=== PATIENT | female | born 1945 | race Caucasian/White ===

== ENCOUNTER 2018-11-19 13:23 | Emergency (ER) | payer MEDICARE ==
[~2018-11-19] VITALS: Ht 170.2 cm; Wt 56.7 kg
[2018-11-19] MEDS ORDERED: KEFLEX500 MG PO (13:47)
== END 2018-11-19 13:52 | disposition home or self-care (01) ==
LOC: ED 13:23
DX: S61.254A Open bite of right ring finger without damage to nail, initial encounter (principal); F17.200 Nicotine dependence, unspecified, uncomplicated; Z90.710 Acquired absence of both cervix and uterus; Z88.0 Allergy status to penicillin; Z88.2 Allergy status to sulfonamides; W54.0XXA Bitten by dog, initial encounter
CPT/HCPCS: 90471; 90715; 99283-25

== ENCOUNTER 2019-10-16 11:44 | Emergency (ER) | payer MEDICARE ==
[~2019-10-16] VITALS: Ht 170.2 cm; Wt 56.7 kg
[~2019-10-16 11:44] MED LIST: KEFLEX500 MG PO
[2019-10-16] MEDS ORDERED: CLEOCIN HCL300 MG PO (12:10)
== END 2019-10-16 12:25 | disposition home or self-care (01) ==
LOC: ED 11:44
DX: L03.115 Cellulitis of right lower limb (principal); F17.200 Nicotine dependence, unspecified, uncomplicated; Z88.0 Allergy status to penicillin; Z88.2 Allergy status to sulfonamides
CPT/HCPCS: 99283

== ENCOUNTER 2020-06-20 17:37 | Emergency (ER) | payer MEDICARE ==
[~2020-06-20] VITALS: Ht 170.2 cm; Wt 50.8 kg
[~2020-06-20 17:37] MED LIST changes: +CLEOCIN HCL300 MG PO
[2020-06-20] MEDS ORDERED: NORCO 5-325 TA1 EACH PO (19:38)
== END 2020-06-20 19:52 | disposition home or self-care (01) ==
LOC: ED 17:37
DX: S32.049A Unspecified fracture of fourth lumbar vertebra, initial encounter for closed fracture (principal); L97.319 Non-pressure chronic ulcer of right ankle with unspecified severity; I10 Essential (primary) hypertension; F17.200 Nicotine dependence, unspecified, uncomplicated; Z88.0 Allergy status to penicillin; Z88.2 Allergy status to sulfonamides; W19.XXXA Unspecified fall, initial encounter
CPT/HCPCS: 72100; 72170; 99283-25

== ENCOUNTER 2022-10-01 18:16 | Emergency (ER) | payer MEDICARE ==
[~2022-10-01] VITALS: Ht 170.2 cm; Wt 49.9 kg
[~2022-10-01 18:16] MED LIST changes: +NORCO 5-325 TA1 EACH PO
--- OUTSIDE RECORDS SUMMARY | 2022-10-01 18:18 | XMS ---
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 ETena VISIT COUNT (12 MO.) 1 [facility] TOTAL 1 NOTE: Visits indicate total known visits. ED/UCC VISIT TRACKING (12 MO.) 10/01/2022 18:16 [facility] [place] TYPE: Emergency COMPLAINT: - PAIN INPATIENT VISIT TRACKING (12 MO.) No inpatient visits to display in this time frame [id number]
[2022-10-01] MEDS ORDERED: ULTRAM50 MG PO (21:55)
[2022-10-01] MEDS ORDERED: CLEOCIN HCL300 MG PO (21:55)
[2022-10-03] MEDS ORDERED: DOXYCYCLINE HY100 MG PO (07:36)
== END 2022-10-01 22:34 | disposition home or self-care (01) ==
LOC: ED 18:16
DX: M54.2 Cervicalgia (principal); G89.29 Other chronic pain; L03.90 Cellulitis, unspecified; I10 Essential (primary) hypertension; F17.200 Nicotine dependence, unspecified, uncomplicated; Z88.0 Allergy status to penicillin; Z88.2 Allergy status to sulfonamides
CPT/HCPCS: 36415; 71045; 72040; 80053; 83735; 84484; 85025; 85379; 85610; 96374; 99284-25; A9270; J2270

== ENCOUNTER 2022-10-03 17:10 | Emergency (ER) | payer MEDICARE ==
[~2022-10-03] VITALS: Ht 170.2 cm; Wt 52.2 kg
[~2022-10-03 17:10] MED LIST changes: +DOXYCYCLINE HY100 MG PO; +ULTRAM50 MG PO
--- OUTSIDE RECORDS SUMMARY | 2022-10-03 17:12 | XMS ---
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 Renetta VISIT COUNT (12 MO.) 2 [facility] TOTAL 2 NOTE: Visits indicate total known visits. ED/UCC VISIT TRACKING (12 MO.) 10/03/2022 17:10 [facility] [place] TYPE: Emergency COMPLAINT: - SHORTNESS OF BREATH 10/01/2022 18:16 [facility] [place] TYPE: Emergency COMPLAINT: - PAIN INPATIENT VISIT TRACKING (12 MO.) No inpatient visits to display in this time frame [email or web address]
[2022-10-04] MEDS ORDERED: DILTIAZEM 24HR180 M1 PO (02:56)
[2022-10-04] MEDS ORDERED: ELIQUIS5 MG PO (02:56)
--- NOTE | 2022-10-04 07:02 | EKG ---
[facility] [address] [place] [address] Signed Atrial fibrillation with rapid ventricular response Minimal voltage criteria for LVH, may be normal variant ( Coden product ) Marked ST abnormality, possible inferior subendocardial injury Abnormal ECG No previous ECGs available Confirmed by ROBERT CARRINGTON MD ([id number]) on 10/04/2022 7:02:23 AM Electronically Signed By: ROBERT CARRINGTON MD 10/04/22 0702 PATIENT NAME: MARIEL HUBBARD Electrocardiogram DATE OF : 47 PHYSICIAN: ROBERT CARRINGTON MD REPORT #: [id number] REPORT IS CONFIDENTIAL AND NOT TO BE RELEASED WITHOUT AUTHORIZATION
== END 2022-10-04 07:28 | disposition home or self-care (01) ==
LOC: ED 17:10
DX: I48.91 Unspecified atrial fibrillation (principal); I10 Essential (primary) hypertension; F17.200 Nicotine dependence, unspecified, uncomplicated; Z88.0 Allergy status to penicillin; Z88.2 Allergy status to sulfonamides; Z20.822 Contact with and (suspected) exposure to COVID-19
CPT/HCPCS: 36415; 71045; 80053; 83735; 84443; 84484; 85025; 87502; 93005; 93010; 96374; 99285-25; C9803; U0003

== ENCOUNTER 2023-05-25 13:45 | Emergency (ER) | payer MEDICARE ==
[~2023-05-25] VITALS: Ht 170.2 cm; Wt 53.2 kg
--- OUTSIDE RECORDS SUMMARY | ~2023-05-25 | XMS | Continuity of Care Document ---
Demographics + + + | Address | [address] | | | [place] [id number] | + + + | Preferred Language | Unknown | + + + | Marital Status | | + + + | Sabianist Affiliation | Unknown | + + + | Race | White | + + + | Ethnic Group | Not or | + + + Author + + + | Author | [facility] | + + + | Organization | [facility] | + + + | Address | [address] | | | [place] [address] | + + + | Phone | | + + + Care Team Providers + + + + | Care Revenue Cycle Consultant Name | Role | Phone | + + + + Unavailable | Unavailable | + + + + Unavailable | Unavailable | + + + + Unavailable | Unavailable | + + + + Unavailable | Unavailable | + + + + Allergies and Intolerances + + + + + + | date | description | facility | reaction | severity | + + + + + + | (no date) | Rash | [facility] | (no reaction) | (no severity) | | [facility] | | | + + + + + + | (no date) | Penicillin | [facility] | (no reaction) | (no severity) | | [facility] | | | + + + + + + | (no date) | Penicillin | [facility] | (no reaction) | (no severity) | | [facility] | | | + + + + + + | (no date) | Penicillins | [facility] | (no reaction) | (no severity) | + + + + + + | (no date) | Sulfa | [facility] | (no reaction) | (no severity) | | | (Sulfonamide | | | | | | Antibiotics) | | | | + + + + + + | (no date) | Penicillin | [facility] | (no reaction) | (no severity) | | [facility] | | | + + + + + + | (no date) | Penicillin | [facility] | (no reaction) | (no severity) | | | [facility] | | | + + + + + + Encounters No information. Functional Status No information. Immunizations + + + + | date | description | facility | + + + + | 2018-11-19 00:00 | Tdap | [facility] | + + + + | 2018-11-19 00:00 | Tdap | [facility] | + + + + | 2018-11-19 00:00 | Tdap | [facility] | + + + + Medications + + + + | date | description | facility | + + + + | 2022-10-04 00:00 | APIXABAN | [facility] | + + + + | 2022-10-04 00:00 | APIXABAN | [facility] | + + + + | 2022-10-03 00:00 | DOXYCYCLINE HYCLATE | [facility] | + + + + | 2018-11-19 00:00 | CEPHALEXIN | [facility] | + + + + | 2018-11-19 00:00 | CEPHALEXIN | [facility] | + + + + | 2018-11-19 00:00 | CEPHALEXIN | [facility] | + + + + | 2019-10-16 00:00 | CLINDAMYCIN HCL | [facility] | + + + + | 2019-10-16 00:00 | CLINDAMYCIN HCL | [facility] | + + + + | 2019-10-16 00:00 | CLINDAMYCIN HCL | [facility] | + + + + | 2022-10-01 00:00 | CLINDAMYCIN HCL | [facility] | + + + + | 2022-10-04 00:00 | DILTIAZEM HCL | [facility] | + + + + | 2022-10-04 00:00 | DILTIAZEM HCL | [facility] | + + + + | 2022-10-01 00:00 | TRAMADOL HCL | [facility] | + + + + Problems + + + + | date | description | facility | + + + + | 2018-11-19 00:00 | Dog bite | [facility] | + + + + | 2018-11-19 00:00 | Dog bite | [facility] | + + + + | 2018-11-19 00:00 | Dog bite | [facility] | + + + + | 2019-10-16 00:00 | Cellulitis | [facility] | + + + + | 2019-10-16 00:00 | Cellulitis | [facility] | + + + + | 2019-10-16 00:00 | Cellulitis | [facility] | + + + + | 2020-06-20 00:00 | Chronic ulcer of lower | [facility] | | | extremity | | + + + + | 2020-06-20 00:00 | Chronic ulcer of lower | [facility] | | | extremity | | + + + + | 2020-06-20 00:00 | Chronic ulcer of lower | [facility] | | | extremity | | + + + + | 2020-06-20 00:00 | Compression fracture of | [facility] | | | vertebra | | + + + + | 2020-06-20 00:00 | Compression fracture of | [facility] | | | vertebra | | + + + + | 2020-06-20 00:00 | Compression fracture of | [facility] | | | vertebra | | + + + + | 2022-10-01 00:00 | Chronic neck pain | [facility] | + + + + | 2022-10-01 00:00 | Chronic neck pain | [facility] | + + + + | 2022-10-01 00:00 | Chronic neck pain | [facility] | + + + + | 2022-10-01 18:16 | NICOTINE DEPENDENCE, | [facility] | | | UNSPECIFIED, UNCOMPLICATED | | + + + + | 2022-10-01 18:16 | OTHER CHRONIC PAIN | [facility] | + + + + | 2022-10-01 18:16 | Essential (primary) | [facility] | | | hypertension | | + + + + | 2022-10-01 18:16 | CELLULITIS, UNSPECIFIED | [facility] | + + + + | 2022-10-01 18:16 | CERVICALGIA | [facility] | + + + + | 2022-10-01 18:16 | ALLERGY STATUS TO | [facility] | | | PENICILLIN | | + + + + | 2022-10-01 18:16 | ALLERGY STATUS TO | [facility] | | | SULFONAMIDES STATUS | | + + + + | 2022-10-03 00:00 | Atrial fibrillation with | [facility] | | | rapid ventricular response | | + + + + | 2022-10-03 00:00 | Atrial fibrillation with | [facility] | | | rapid ventricular response | | + + + + | 2023-05-16 00:00 | Encounter for wound | [facility] | | | re-check | | + + + + Procedures No information. Results/Labs +--------+--------+ +---------+--------+---------+ | test | date | facility | value | unit | notes | +--------+--------+ +---------+--------+---------+ + + | Result panel 1 | + + + + + +-------+ + + | | 2022-10-01 | [facility] | 6.4 | (missing) | (missing) | | (unavailable | 18:30:08 [facility] | | | | + + + +-------+ + + + + | Result panel 2 | + + + + + +--------+ + + | | 2022-10-01 | [facility] | 68.0 | (missing) | (missing) | | (unavailable | 18:30:08 [facility] | | | | + + + +--------+ + + + + | Result panel 3 | + + + + + +--------+ + + | | 2022-10-01 | [facility] | 22.1 | (missing) | (missing) | | (unavailable | 18:30:08 [facility] | | | | + + + +--------+ + + + + | Result panel 4 | + + + + + +-------+ + + | | 2022-10-01 | [facility] | 7.3 | (missing) | (missing) | | (unavailable | 18:30:08 [facility] | | | | + + + +-------+ + + + + | Result panel 5 | + + + + + +-------+ + + | | 2022-10-01 | [facility] | 2.0 | (missing) | (missing) | | (unavailable | 18:30:08 [facility] | | | | + + + +-------+ + + + + | Result panel 6 | + + + + + +-------+ + + | | 2022-10-01 | [facility] | 0.6 | (missing) | (missing) | | (unavailable | 18:30:08 [facility] | | | | + + + +-------+ + + + + | Result panel 7 | + + + + + +------+---------+ + | | 2022-10-01 | [facility] | 99 | mg/dL | (missing) | | (unavailable | 18:30:08 [facility] | | | | + + + +------+---------+ + + + | Result panel 8 | + + + + + +------+---------+ + | | 2022-10-01 | [facility] | 13 | mg/dL | (missing) | | (unavailable | 18:30:08 [facility] | | | | + + + +------+---------+ + + + | Result panel 9 | + + + + + +--------+ + + | | 2022-10-01 | [facility] | 4.34 | (missing) | (missing) | | (unavailable | 18:30:08 [facility] | | | | + + + +--------+ + + + + | Result panel 10 | + + + + + +--------+---------+ + | | 2022-10-01 | [facility] | 0.86 | mg/dL | (missing) | | (unavailable | 18:30:08 [facility] | | | | + + + +--------+---------+ + + + | Result panel 11 | + + + + + +------+ + + | | 2022-10-01 | [facility] | 70 | (missing) | (missing) | | (unavailable | 18:30:08 [facility] | | | | + + + +------+ + + + + | Result panel 12 | + + + + + +---------+ + + | | 2022-10-01 | [facility] | 15.11 | (missing) | (missing) | | (unavailable | 18:30:08 [facility] | | | | + + + +---------+ + + + + | Result panel 13 | + + + + + +-------+ + + | | 2022-10-01 | [facility] | 137 | (missing) | (missing) | | (unavailable | 18:30:08 [facility] | | | | + + + +-------+ + + + + | Result panel 14 | + + + + + +-------+ + + | | 2022-10-01 | [facility] | 4.1 | (missing) | (missing) | | (unavailable | 18:30:08 [facility] | | | | + + + +-------+ + + + + | Result panel 15 | + + + + + +------+ + + | | 2022-10-01 | [facility] | 99 | (missing) | (missing) | | (unavailable | 18:30:08 [facility] | | | | + + + +------+ + + + + | Result panel 16 | + + + + + +------+ + + | | 2022-10-01 | [facility] | 33 | (missing) | (missing) | | (unavailable | 18:30:08 [facility] | | | | + + + +------+ + + + + | Result panel 17 | + + + + + +-------+ + + | | 2022-10-01 | [facility] | 9.1 | (missing) | (missing) | | (unavailable | 18:30:08 [facility] | | | | + + + +-------+ + + + + | Result panel 18 | + + + + + +-------+---------+ + | | 2022-10-01 | [facility] | 9.6 | mg/dL | (missing) | | (unavailable | 18:30:08 [facility] | | | | + + + +-------+---------+ + + + | Result panel 19 | + + + + + +-------+---------+ + | | 2022-10-01 | [facility] | 2.0 | mg/dL | (missing) | | (unavailable | 18:30:08 [facility] | | | | + + + +-------+---------+ + + + | Result panel 20 | + + + + + +--------+ + + | | 2022-10-01 | [facility] | 14.5 | (missing) | (missing) | | (unavailable | 18:30:08 [facility] | | | | + + + +--------+ + + + + | Result panel 21 | + + + + + +-------+ + + | | 2022-10-01 | [facility] | 7.7 | (missing) | (missing) | | (unavailable | 18:30:08 [facility] | | | | + + + +-------+ + + + + | Result panel 22 | + + + + + +-------+ + + | | 2022-10-01 | [facility] | 4.2 | (missing) | (missing) | | (unavailable | 18:30:08 [facility] | | | | + + + +-------+ + + + + | Result panel 23 | + + + + + +-------+ + + | | 2022-10-01 | [facility] | 3.5 | (missing) | (missing) | | (unavailable | 18:30:08 [facility] | | | | + + + +-------+ + + + + | Result panel 24 | + + + + + +--------+ + + | | 2022-10-01 | [facility] | 1.20 | (missing) | (missing) | | (unavailable | 18:30:08 [facility] | | | | + + + +--------+ + + + + | Result panel 25 | + + + + + +-------+ + + | | 2022-10-01 | [facility] | 0.4 | (missing) | (missing) | | (unavailable | 18:30:08 [facility] | | | | + + + +-------+ + + + + | Result panel 26 | + + + + + +------+ + + | | 2022-10-01 | [facility] | 29 | (missing) | (missing) | | (unavailable | 18:30:08 [facility] | | | | + + + +------+ + + + + | Result panel 27 | + + + + + +------+ + + | | 2022-10-01 | [facility] | 19 | (missing) | (missing) | | (unavailable | 18:30:08 [facility] | | | | + + + +------+ + + + + | Result panel 28 | + + + + + +------+ + + | | 2022-10-01 | [facility] | 74 | (missing) | (missing) | | (unavailable | 18:30:08 [facility] | | | | + + + +------+ + + + + | Result panel 29 | + + + + + +--------+ + + | | 2022-10-01 | [facility] | 13.2 | (missing) | (missing) | | (unavailable | 18:30:08 [facility] | | | | + + + +--------+ + + + + | Result panel 30 | + + + + + +--------+ + + | | 2022-10-01 | [facility] | 43.8 | (missing) | (missing) | | (unavailable | 18:30:08 [facility] | | | | + + + +--------+ + + + + | Result panel 31 | + + + + + +---------+ + + | | 2022-10-01 | [facility] | 101.1 | (missing) | (missing) | | (unavailable | 18:30:08 [facility] | | | + + + +---------+ + + + + | Result panel 32 | + + + + + +--------+ + + | | 2022-10-01 | [facility] | 33.4 | (missing) | (missing) | | (unavailable | 18:30:08 [facility] | | | + + + +--------+ + + + + | Result panel 33 | + + + + + +--------+ + + | | 2022-10-01 | [facility] | 33.1 | (missing) | (missing) | | (unavailable | 18:30:08 [facility] | | | + + + +--------+ + + + + | Result panel 34 | + + + + + +--------+ + + | | 2022-10-01 | [facility] | 13.4 | (missing) | (missing) | | (unavailable | 18:30:08 [facility] | | | | + + + +--------+ + + + + | Result panel 35 | + + + + + +-------+ + + | | 2022-10-01 | [facility] | 183 | (missing) | (missing) | | (unavailable | 18:30:08 [facility] | | | + + + +-------+ + + + + | Result panel 36 | + + + + + +--------+ + + | | 2022-10-01 | [facility] | 13.0 | (missing) | (missing) | | (unavailable | 20:50:08 [facility] | | | | + + + +--------+ + + + + | Result panel 37 | + + + + + +--------+ + + | | 2022-10-01 | [facility] | 1.03 | (missing) | (missing) | | (unavailable | 20:50:08 [facility] | | | | + + + +--------+ + + + + | Result panel 38 | + + + + + +--------+ + + | | 2022-10-01 | [facility] | 0.77 | (missing) | (missing) | | (unavailable | 20:50:08 [facility] | | | | + + + +--------+ + + + + | Result panel 39 | + + + + + +--------+ + + | | 2022-10-01 | [facility] | 13.0 | (missing) | (missing) | | (unavailable | 20:50:08 [facility] | | | + + + +--------+ + + + + | Result panel 40 | + + + + + +--------+ + + | | 2022-10-01 | [facility] | 1.03 | (missing) | (missing) | | (unavailable | 20:50:08 [facility] | | | + + + +--------+ + + + + | Result panel 41 | + + + + + +--------+ + + | | 2022-10-01 | [facility] | 0.77 | (missing) | (missing) | | (unavailable | 20:50:08 [facility] | | | + + + +--------+ + + + + | Result panel 42 | + + + + + +--------+ + + | | 2022-10-03 | [facility] | 10.1 | (missing) | (missing) | | (unavailable | 17:25:08 [facility] | | | + + + +--------+ + + + + | Result panel 43 | + + + + + +--------+ + + | | 2022-10-03 | [facility] | 4.42 | (missing) | (missing) | | (unavailable | 17:25:08 [facility] | | | | + + + +--------+ + + + + | Result panel 44 | + + + + + +--------+ + + | | 2022-10-03 | [facility] | 15.1 | (missing) | (missing) | | (unavailable | 17:25:08 [facility] | | | | + + + +--------+ + + + + | Result panel 45 | + + + + + +--------+ + + | | 2022-10-03 | [facility] | 44.2 | (missing) | (missing) | | (unavailable | 17:25:08 [facility] | | | + + + +--------+ + + + + | Result panel 46 | + + + + + +---------+ + + | | 2022-10-03 | [facility] | 100.0 | (missing) | (missing) | | (unavailable | [facility]:25:08 [facility] | | | + + + +---------+ + + + + | Result panel 47 | + + + + + +--------+ + + | | 2022-10-03 | [facility] | 34.0 | (missing) | (missing) | | (unavailable | [facility]:25:08 [facility] | | | + + + +--------+ + + + + | Result panel 48 | + + + + + +--------+ + + | | 2022-10-03 | [facility] | 34.1 | (missing) | (missing) | | (unavailable | [facility]:25:08 [facility] | | | + + + +--------+ + + + + | Result panel 49 | + + + + + +--------+ + + | | 2022-10-03 | [facility] | 13.5 | (missing) | (missing) | | (unavailable | 17:25:08 [facility] | | | + + + +--------+ + + + + | Result panel 50 | + + + + + +-------+ + + | | 2022-10-03 | [facility] | 212 | (missing) | (missing) | | (unavailable | 17:25:08 [facility] | | | + + + +-------+ + + + + | Result panel 51 | + + + + + +--------+ + + | | 2022-10-03 | [facility] | 80.4 | (missing) | (missing) | | (unavailable | 17:25:08 [facility] | | | | + + + +--------+ + + + + | Result panel 52 | + + + + + +--------+ + + | | 2022-10-03 | [facility] | 11.8 | (missing) | (missing) | | (unavailable | 17:25:08 [facility] | | | + + + +--------+ + + + + | Result panel 53 | + + + + + +-------+ + + | | 2022-10-03 | [facility] | 6.5 | (missing) | (missing) | | (unavailable | 17::08 [facility] | | | | + + + +-------+ + + + + | Result panel 54 | + + + + + +-------+ + + | | 2022-10-03 | [facility] | 0.8 | (missing) | (missing) | | (unavailable | 17:25:08 [facility] | | | | + + + +-------+ + + + + | Result panel 55 | + + + + + +-------+ + + | | 2022-10-03 | [facility] | 0.5 | (missing) | (missing) | | (unavailable | 17:25:08 [facility] | | | + + + +-------+ + + + + | Result panel 56 | + + + + + +-------+---------+ + | | 2022-10-03 | [facility] | 127 | mg/dL | (missing) | | (unavailable | 17:25:08 [facility] | | | | + + + +-------+---------+ + + + | Result panel 57 | + + + + + +------+---------+ + | | 2022-10-03 | [facility] | 14 | mg/dL | (missing) | | (unavailable | 17:25:08 [facility] | | | | + + + +------+---------+ + + + | Result panel 58 | + + + + + +--------+---------+ + | | 2022-10-03 | [facility] | 0.92 | mg/dL | (missing) | | (unavailable | 17:25:08 [facility] | | | | + + + +--------+---------+ + + + | Result panel 59 | + + + + + +------+ + + | | 2022-10-03 | [facility] | 65 | (missing) | (missing) | | (unavailable | 17::08 [facility] | | | | + + + +------+ + + + + | Result panel 60 | + + + + + +---------+ + + | | 2022-10-03 | [facility] | 15.21 | (missing) | (missing) | | (unavailable | 17::08 [facility] | | | | + + + +---------+ + + + + | Result panel 61 | + + + + + +-------+ + + | | 2022-10-03 | [facility] | 133 | (missing) | (missing) | | (unavailable | 17:25:08 [facility] | | | | + + + +-------+ + + + + | Result panel 62 | + + + + + +-------+ + + | | 2022-10-03 | [facility] | 4.3 | (missing) | (missing) | | (unavailable | 17:25:08 [facility] | | | | + + + +-------+ + + + + | Result panel 63 | + + + + + +------+ + + | | 2022-10-03 | [facility] | 97 | (missing) | (missing) | | (unavailable | 17:25:08 [facility] | | | | + + + +------+ + + + + | Result panel 64 | + + + + + +------+ + + | | 2022-10-03 | [facility] | 30 | (missing) | (missing) | | (unavailable | 17:25:08 [facility] | | | | + + + +------+ + + + + | Result panel 65 | + + + + + +--------+ + + | | 2022-10-03 | [facility] | 10.3 | (missing) | (missing) | | (unavailable | 17:25:08 [facility] | | | | + + + +--------+ + + + + | Result panel 66 | + + + + + +-------+---------+ + | | 2022-10-03 | [facility] | 9.4 | mg/dL | (missing) | | (unavailable | 17:25:08 [facility] | | | | + + + +-------+---------+ + + + | Result panel 67 | + + + + + +-------+---------+ + | | 2022-10-03 | [facility] | 1.9 | mg/dL | (missing) | | (unavailable | 17:25:08 [facility] | | | | + + + +-------+---------+ + + + | Result panel 68 | + + + + + +-------+ + + | | 2022-10-03 | [facility] | 7.8 | (missing) | (missing) | | (unavailable | 17:25:08 [facility] | | | | + + + +-------+ + + + + | Result panel 69 | + + + + + +-------+ + + | | 2022-10-03 | [facility] | 4.1 | (missing) | (missing) | | (unavailable | 17:25:08 [facility] | | | | + + + +-------+ + + + + | Result panel 70 | + + + + + +-------+ + + | | 2022-10-03 | [facility] | 3.7 | (missing) | (missing) | | (unavailable | 17:25:08 [facility] | | | | + + + +-------+ + + + + | Result panel 71 | + + + + + +--------+ + + | | 2022-10-03 | [facility] | 1.11 | (missing) | (missing) | | (unavailable | 17::08 [facility] | | | | + + + +--------+ + + + + | Result panel 72 | + + + + + +-------+ + + | | 2022-10-03 | [facility] | 0.7 | (missing) | (missing) | | (unavailable | 17:25:08 [facility] | | | | + + + +-------+ + + + + | Result panel 73 | + + + + + +------+ + + | | 2022-10-03 | [facility] | 16 | (missing) | (missing) | | (unavailable | 17:25:08 [facility] | | | | + + + +------+ + + + + | Result panel 74 | + + + + + +------+ + + | | 2022-10-03 | [facility] | 17 | (missing) | (missing) | | (unavailable | 17:25:08 [facility] | | | | + + + +------+ + + + + | Result panel 75 | + + + + + +------+ + + | | 2022-10-03 | [facility] | 77 | (missing) | (missing) | | (unavailable | 17::08 [facility] | | | | + + + +------+ + + + + | Result panel 76 | + + + + + +--------+ + + | | 2022-10-03 | [facility] | 48.9 | (missing) | (missing) | | (unavailable | 17:25:08 [facility] | | | | + + + +--------+ + + + + | Result panel 77 | + + + + + +---------+ + + | | 2022-10-03 | [facility] | 1.392 | (missing) | (missing) | | (unavailable | 17:25:08 [facility] | | | | + + + +---------+ + + + + | Result panel 78 | + + + + + + + + + | | 2022-10-03 | [facility] | NEGATIVE | (missing) | (missing) | | (unavailable | 18:00:08 [facility] | | | | + + + + + + + + + | Result panel 79 | + + + + + + + + + | | 2022-10-03 | [facility] | NEGATIVE | (missing) | (missing) | | (unavailable | 18:00:08 [facility] | | | | + + + + + + + + + | Result panel 80 | + + + + + + + + + | | 2022-10-03 | [facility] | NEGATIVE | (missing) | (missing) | | (unavailable | 18:00:08 [facility] | | | | + + + + + + + + + | Result panel 81 | + + + + + + + + + | | 2022-10-03 | [facility] | NEGATIVE | (missing) | (missing) | | (unavailable | 18:00:08 [facility] | | | | + + + + + + + Social History No information. Vital Signs + + + +---------+ | date | measurement | value | units | + + + +---------+ | 2022-10-01 00:00 | BMI | 17.2 | kg/m2 | + + + +---------+ | 2022-10-01 00:00 | BP_diastolic | 81 | mmHg | + + + +---------+ | 2022-10-01 00:00 | BP_systolic | 174 | mmHg | + + + +---------+ | 2022-10-01 00:00 | heart_rate | 72 | /min | + + + +---------+ | 2022-10-01 00:00 | height_metric | 170.18 | cm | + + + +---------+ | 2022-10-01 00:00 | height_standard | 67 | in | + + + +---------+ | 2022-10-01 00:00 | o2_saturation | 93 | % | + + + +---------+ | 2022-10-01 00:00 | respiration_rate | 18 | /min | + + + +---------+ | 2022-10-01 00:00 | temperature_metric | 37.06 | C | | | | | | + + + +---------+ | 2022-10-01 00:00 | | 98.7 | F | | | temperature_standar | | | | | d | | | + + + +---------+ | 2022-10-01 00:00 | weight_metric | 49.9 | kg | + + + +---------+ | 2022-10-01 00:00 | weight_standard | 110 | lb | + + + +---------+ | 2022-10-01 00:00 | weight_standard | 110.01 | lb | + + + +---------+ | 2022-10-03 00:00 | BMI | 18.0 | kg/m2 | + + + +---------+ | 2022-10-03 00:00 | height_metric | 170.18 | cm | + + + +---------+ | 2022-10-03 00:00 | height_standard | 67 | in | + + + +---------+ | 2022-10-03 00:00 | weight_metric | 52.16 | kg | + + + +---------+ | 2022-10-03 00:00 | weight_standard | 114.99 | lb | + + + +---------+ | 2022-10-03 00:00 | weight_standard | 115 | lb | + + + +---------+ | 2022-10-04 00:00 | BP_diastolic | 70 | mmHg | + + + +---------+ | 2022-10-04 00:00 | BP_systolic | 152 | mmHg | + + + +---------+ | 2022-10-04 00:00 | heart_rate | 80 | /min | + + + +---------+ | 2022-10-04 00:00 | o2_saturation | 98 | % | + + + +---------+ | 2022-10-04 00:00 | respiration_rate | 19 | /min | + + + +---------+ | 2022-10-04 00:00 | temperature_metric | 37.39 | C | | | | | | + + + +---------+ | 2022-10-04 00:00 | | 99.3 | F | | | temperature_standar | | | | | d | | | + + + +---------+ | 2023-05-16 00:00 | BMI | 18.0 | kg/m2 | + + + +---------+ | 2023-05-16 00:00 | BP_diastolic | 109 | mmHg | + + + +---------+ | 2023-05-16 00:00 | BP_systolic | 218 | mmHg | + + + +---------+ | 2023-05-16 00:00 | heart_rate | 82 | /min | + + + +---------+ | 2023-05-16 00:00 | height_metric | 170.18 | cm | + + + +---------+ | 2023-05-16 00:00 | height_standard | 67 | in | + + + +---------+ | 2023-05-16 00:00 | o2_saturation | 97 | % | + + + +---------+ | 2023-05-16 00:00 | respiration_rate | 18 | /min | + + + +---------+ | 2023-05-16 00:00 | temperature_metric | 36.39 | C | | | | | | + + + +---------+ | 2023-05-16 00:00 | | 97.5 | F | | | temperature_standar | | | | | d | | | + + + +---------+ | 2023-05-16 00:00 | weight_metric | 52.16 | kg | + + + +---------+ | 2023-05-16 00:00 | weight_standard | 114.99 | lb | + + + +---------+ | 2023-05-16 00:00 | weight_standard | 115 | lb | + + + +---------+"
--- OUTSIDE RECORDS SUMMARY | ~2023-05-25 | XMS | Continuity of Care Document ---
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 | Phone | + [...] + | 2018-11-19 00:00 | Tdap | [facility] | + + + + | 2018-11-19 00:00 | Tdap | [facility] | + + + + | 2018-11-19 00:00 | Tdap | [facility] | + + + + Medications + + + + | date | description | facility | + + + + | 2022-10-04 00:00 | APIXABAN | [facility] | + + + + | 2022-10-04 00:00 | APIXABAN | [facility] | + + + + | 2022-10-03 00:00 | DOXYCYCLINE HYCLATE | [facility] | + + + + | 2018-11-19 00:00 | CEPHALEXIN | [facility] | + + + + | 2018-11-19 00:00 | CEPHALEXIN | [facility] | + + + + | 2018-11-19 00:00 | CEPHALEXIN | [facility] | + + + + | 2019-10-16 00:00 | CLINDAMYCIN HCL | [facility] | + + + + | 2019-10-16 00:00 | CLINDAMYCIN HCL | [facility] | + + + + | 2019-10-16 00:00 | CLINDAMYCIN HCL | [facility] | + + + + | 2022-10-01 00:00 | CLINDAMYCIN HCL | [facility] | + + + + | 2022-10-04 00:00 | DILTIAZEM HCL | [facility] | + + + + | 2022-10-04 00:00 | DILTIAZEM HCL | [facility] | + + + + | 2022-10-01 00:00 | TRAMADOL HCL | [facility] | + + + + Problems + + + + | date | description | facility | + + + + | 2018-11-19 00:00 | Dog bite | [facility] | + + + + | 2018-11-19 00:00 | Dog bite | [facility] | + + + + | 2018-11-19 00:00 | Dog bite | [facility] | + + + + | 2019-10-16 00:00 | Cellulitis | [facility] | + + + + | 2019-10-16 00:00 | Cellulitis | [facility] | + + + + | 2019-10-16 00:00 | Cellulitis | [facility] | + + + + | 2020-06-20 00:00 | Chronic ulcer of lower | [facility] | | | extremity | | + + + + | 2020-06-20 00:00 | Chronic ulcer of lower | [facility] | | | extremity | | + + + + | 2020-06-20 00:00 | Chronic ulcer of lower | [facility] | | | extremity | | + + + + | 2020-06-20 00:00 | Compression fracture of | [facility] | | | vertebra | | + + + + | 2020-06-20 00:00 | Compression fracture of | [facility] | | | vertebra | | + + + + | 2020-06-20 00:00 | Compression fracture of | [facility] | | | vertebra | | + + + + | 2022-10-01 00:00 | Chronic neck pain | [facility] | + + + + | 2022-10-01 00:00 | Chronic neck pain | [facility] | + + + + | 2022-10-01 00:00 | Chronic neck pain | [facility] | + + + + | [...] 2022-10-03 00:00 | Atrial fibrillation with | [facility] | | | rapid ventricular response | | + + + + | 2022-10-03 00:00 | Atrial fibrillation with | [facility] | | | rapid ventricular response | | + + + + | 2023-05-16 00:00 | Encounter for wound | [facility] | | | re-check | | + [...]
[~2023-05-25 13:45] MED LIST changes: +DILTIAZEM 24HR180 M1 PO; +ELIQUIS5 MG PO
--- OUTSIDE RECORDS SUMMARY | 2023-05-25 13:52 | XMS ---
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 ETena VISIT COUNT (12 [address] [facility] TOTAL 4 NOTE: Visits indicate total known visits. ED/UCC VISIT TRACKING (12 MO.) 05/25/2023 13:46 [facility] [place] TYPE: Emergency COMPLAINT: - INSECT BITE 05/16/2023 16:11 [facility] [place] TYPE: Emergency COMPLAINT: - WOUND CHECK 10/03/2022 17:10 [facility] [place] TYPE: Emergency COMPLAINT: - SHORTNESS OF BREATH DIAGNOSES: - Allergy status to penicillin - Allergy status to sulfonamides - Contact with and (suspected) exposure to COVID-19 - Essential (primary) hypertension - Nicotine dependence, unspecified, uncomplicated - Shortness of breath - Unspecified atrial fibrillation 10/01/2022 18:[address] [facility] [place] TYPE: Emergency COMPLAINT: - PAIN DIAGNOSES: - Allergy status to penicillin - Allergy status to sulfonamides - Cellulitis, unspecified - Cervicalgia - Essential (primary) hypertension - Nicotine dependence, unspecified, uncomplicated - Other chronic pain INPATIENT VISIT TRACKING (12 MO.) No inpatient visits to display in this time frame [id number]
[2023-05-25 20:20] VITALS: BP 230/100
== END 2023-05-25 20:20 | disposition home or self-care (01) ==
LOC: ED 13:45
DX: S91.001A Unspecified open wound, right ankle, initial encounter (principal); X58.XXXA Exposure to other specified factors, initial encounter; I10 Essential (primary) hypertension; F17.200 Nicotine dependence, unspecified, uncomplicated; Z88.0 Allergy status to penicillin; Z88.2 Allergy status to sulfonamides; Z79.01 Long term (current) use of anticoagulants; Z79.899 Other long term (current) drug therapy
CPT/HCPCS: 99283

== ENCOUNTER 2023-07-30 16:49 | Emergency (ER) | payer MEDICARE ==
--- NOTE | ~2023-07-30 | EKG ---
[facility] [address] [place], [place] [address] Draft EK completed, results pending confirmation PATIENT NAME: MARIEL HUBBARD David Electrocardiogram DATE OF : 47 PHYSICIAN: PRELIMINARY REPORT #: [id number] REPORT IS CONFIDENTIAL AND NOT TO BE RELEASED WITHOUT AUTHORIZATION
[2023-07-30 17:12] LABS: BASOPHILS 0.9 % (0-2); EOSINOPHILS 0.6 % (0-6); HEMATOCRIT 47.5 % (35.0-50.0); HEMOGLOBIN 15.5 g/dL (12.0-18.0); MCH 30.1 (27-36); MCHC 32.7 g/dl (30-36); MCV 92.1 fl (81-99); MONOCYTES 5.9 % (0-12); NEUTROPHILS 84.6 % (39-80); PLATELET COUNT 208 K/uL (140-440); RBC 5.16 M/ul (4.3-5.7); RDW 14.9 (10.5-15.0)
[2023-07-30 17:27] LABS: ALBUMIN 3.9 g/dL (3.4-5.0); ALBUMIN/GLOBULIN RATIO 0.98 (1.1-2.4); ALCOHOL, MEDICAL <3 ng/dL (<3); ALKALINE PHOSPHATASE 77 U/L (46-116); ALT (SGPT) 16 U/L (14-59); ANION GAP 16.2 (7-21); AST (SGOT) 27 U/L (15-37); BUN/CREATININE RATIO 20.96 (6.0-28.6); CALCIUM 9.7 mg/dL (8.5-10.1); CARBON DIOXIDE 25 mmol/L (21-32); CHLORIDE 98 mmol/L (98-107); CREATINE KINASE 565 U/L (26-192); CREATININE, SERUM 1.24 mg/dL (0.55-1.02); GLOMERULAR FILTRATION RATE,EST 45 mL/min (>60); POTASSIUM 4.2 mmol/L (3.5-5.1); PROTEIN, TOTAL 7.9 g/dL (6.4-8.2); UREA NITROGEN 26 mg/dL (7-18)
[2023-07-30 17:54] LABS: ABO A; ANTIBODY SCREEN NEGATIVE; RH POSITIVE
[2023-07-30 18:15] LABS: INFLUENZA B NAA NEGATIVE (NEGATIVE); RESPIRATORY SYNCYTIAL VIR NAA NEGATIVE (NEGATIVE)
[2023-07-30 20:10] VITALS: BP 149/50
--- NOTE | 2023-07-31 12:18 | EKG ---
[facility] [address] [facility] [address] [place] [address] Signed Normal sinus rhythm Cannot rule out Anterior infarct (cited on or before 30-JUL-2023) ST \T\ T wave abnormality, consider inferolateral ischemia Abnormal ECG When compared with ECG of 30-JUL-2023 19:11, (Unconfirmed) No significant change was found Confirmed by ALLISON HILL MD ([id number]) on 07/31/2023 12:18:05 PM Electronically Signed By: ALLISON HILL 07/31/23 1218 PATIENT NAME: MARIEL HUBBARD Electrocardiogram DATE OF : 47 PHYSICIAN: ALLISON HILL REPORT #: [id number] REPORT IS CONFIDENTIAL AND NOT TO BE RELEASED WITHOUT AUTHORIZATION
== END 2023-07-30 20:10 | disposition short-term general hospital (02) ==
LOC: ED 16:49
PROVIDERS: Internal Medicine
DX: S72.141A Displaced intertrochanteric fracture of right femur, initial encounter for closed fracture (principal); S00.03XA Contusion of scalp, initial encounter; J69.0 Pneumonitis due to inhalation of food and vomit; W18.30XA Fall on same level, unspecified, initial encounter; I10 Essential (primary) hypertension; Z20.822 Contact with and (suspected) exposure to COVID-19; F17.200 Nicotine dependence, unspecified, uncomplicated; Z88.0 Allergy status to penicillin; Z88.2 Allergy status to sulfonamides; Z79.899 Other long term (current) drug therapy
CPT/HCPCS: 36415; 70450; 71045; 72125; 73502; 80053; 82553; 85025; 86850; 86900; 86901; 87502; 93005; 93010; 96365; 96375; 99285-25; C9803; G0480; J0696; J1170; J7030; U0002